=== PATIENT | female | born 1930 | race Caucasian/White ===

== ENCOUNTER → 2017-05-17 | Outpatient (CLI) | payer OTHER ==
[~2017-05-17] MED LIST: CELEBREX200 MG PO; CENTRUM SILVER1 EAC3 PO; CITRACAL PLUS1 EAC1 PO; DIOVAN80 MG PO; ENABLEX7.5 MG PO; IMDUR60 MG PO; MEGA RED PO; ST. JOSEPH ASPI81 MG PO; TRICOR48 MG PO; TRIPLEFLEX PO; VERELAN 240 MG240 MG PO
== END | disposition home or self-care (01) ==
DX: M17.11 Unilateral primary osteoarthritis, right knee (principal); R26.2 Difficulty in walking, not elsewhere classified; M25.561 Pain in right knee; M25.661 Stiffness of right knee, not elsewhere classified; M62.81 Muscle weakness (generalized); Z74.1 Need for assistance with personal care
CPT/HCPCS: 97110 GP; 97150 GO; 97161 GP; 97165 GO; G8978 GP; G8979 GP; G8980 GP; G8987 GO; G8988 GO; G8989 GO

== ENCOUNTER 2017-06-06 21:25 | Inpatient (IN) | payer OTHER ==
[~2017-06-06] VITALS: Ht 165.1 cm; Wt 95.3 kg
[~2017-06-06 21:25] MED LIST changes: +AZO BLADDER CO300 MG PO; +CALAN SR,COVER240 MG PO; +COLACE100 MG PO; +CYANOCOBALAM1000 MCG PO; +DIOVAN160 MG PO; -DIOVAN80 MG PO; +IRON325 M1 PO; +JOINT HEALTH T1 EACH PO; +SENOKOT,SENN1 TABLET PO; +TYLENOL EXTRA500 MG PO; +VITAMIN D31000 UNI2 PO
[2017-06-07 11:05] VITALS: BP 193/81
[2017-06-07 11:07] VITALS: BP 193/81
[2017-06-07 14:28] LABS: MCH 31.4 PG (29.0-34.0); MCHC 32.3 G/DL (30.0-36.0); MCV 97.3 FL (83-99); MEAN PLAT.VOLUME 12.3 uM^3 (9.5-12.4); PLATELET COUNT 238 K/uL (156-360); RBC DIS.WIDTH-CV 13.5 % (11.8-14.6); RBC DIS.WIDTH-SD 48.9 % (39-53); RED BLOOD COUNT 4.52 M/uL (3.80-5.20); WHITE BLOOD COUNT 10.6 K/uL (4.1-10.2)
[2017-06-07 17:56] VITALS: BP 180/84
[2017-06-07 20:19] VITALS: BP 149/69
[2017-06-08] VITALS (7 sets, daily range): BP systolic 142–193; BP diastolic 66–81
[2017-06-08 05:43] LABS: MCV 95.9 FL (83-99)
[2017-06-08 06:07] LABS: ANION GAP 8 MEQ/L (2-14); CHLORIDE 101 MEQ/L (99-109); GFR ESTIMATE (CALCULATED) 38 mL/min/; GLUCOSE 121 mg/dL (70-99); POTASSIUM 4.8 MEQ/L (3.7-5.4); SAMPLE HEMOLYSIS CHECK 0; SAMPLE ICTERIC CHECK 0; SAMPLE LIPEMIA CHECK 0; SODIUM 139 MEQ/L (136-147); UREA NITROGEN (BUN) 21 mg/dL (9-23)
[2017-06-09 06:38] LABS: MCV 94.9 FL (83-99)
[2017-06-09 07:13] LABS: ANION GAP 7 MEQ/L (2-14); CHLORIDE 103 MEQ/L (99-109); GFR ESTIMATE (CALCULATED) 41 mL/min/; GLUCOSE 99 mg/dL (70-99); POTASSIUM 4.6 MEQ/L (3.7-5.4); SAMPLE HEMOLYSIS CHECK 0; SAMPLE ICTERIC CHECK 0; SAMPLE LIPEMIA CHECK 0; SODIUM 138 MEQ/L (136-147); UREA NITROGEN (BUN) 23 mg/dL (9-23)
[2017-06-09 08:30] VITALS: BP 144/69
[2017-06-09 16:30] VITALS: BP 125/78
[2017-06-09 23:17] VITALS: BP 172/73
[2017-06-10 07:38] VITALS: BP 138/668
[2017-06-10] MEDS ORDERED: LOVENOX40 MG/0.4 SC (07:46)
[2017-06-10] MEDS ORDERED: ENDOCET 5-3251 EACH PO (07:46)
[2017-06-10 09:28] VITALS: BP 146/60
[2017-06-10] MEDS ORDERED: COLACE100 MG PO (12:26)
[2017-06-10] MEDS ORDERED: MILK OF MAGN PO (12:43)
[2017-06-10] MEDS ORDERED: CITRATE OF MAG296 ML PO (12:48)
[2017-06-16] MEDS ORDERED: VALSARTAN160 MG PO (18:41)
[2017-06-16] MEDS ORDERED: POLYETHYLENE GL17 GM PO (18:41)
== END 2017-06-10 11:12 | DRG 470 ==
LOC: ENRESERV 21:25 → 2SOUTH 06-07 09:29 → 3EAST 06-07 09:29 → 2SOUTH 06-07 09:33 → ENRESERV 06-07 14:54 → 3EAST 06-07 16:59
PROVIDERS: Orthopaedic Surgery; Physician Assistant
PROC: 0SRC0J9 Replacement of Right Knee Joint with Synthetic Substitute, Cemented, Open Approach (ICD-10-PCS; principal; 2017-06-07)
DX: M17.11 Unilateral primary osteoarthritis, right knee (principal); E78.5 Hyperlipidemia, unspecified; I25.10 Atherosclerotic heart disease of native coronary artery without angina pectoris; I12.9 Hypertensive chronic kidney disease with stage 1 through stage 4 chronic kidney disease, or unspecified chronic kidney disease; N18.2 Chronic kidney disease, stage 2 (mild); K21.9 Gastro-esophageal reflux disease without esophagitis; L30.9 Dermatitis, unspecified; Z83.3 Family history of diabetes mellitus
CPT/HCPCS: 71010; 73560; 80048; 85014; 85018; 85027; C1713; J0131; J0360; J0690; J1100; J1170; J1650; J2250; J2405; J3010; J7050